=== PATIENT | male | born 1970 | race Caucasian/White ===

== ENCOUNTER 2023-03-21 14:02 | Emergency (ER) | payer MEDICAID ==
[~2023-03-21] VITALS: Ht 170.2 cm; Wt 78.5 kg
--- OUTSIDE RECORDS SUMMARY | 2023-03-21 14:06 | XMS ---
PreManage Notification: STACIA BARRAZA Security Rehab Therapy Manager Events No recent Security Events currently on file CRITERIA MET - [facility] - 2 Visits in 30 Days CARE PROVIDERS There are no care providers on record at this time. Nicola has no Care Guidelines for this patient. [place] [facility] COUNT (12 MO.) [facility] NOTE: Visits indicate total known visits. ED[facility] VISIT TRACKING (12 MO.) [facility]23 14[facility] COMPLAINT: - SHAKY, MEMORY LOSS, DIZZY, HALLUCINATIONS 03/21/2023 12:[address] [facility] TYPE: Emergency COMPLAINT: - SHAKY, STUTTERING/SLURRING WORDS INPATIENT VISIT TRACKING (12 MO.) No inpatient visits to display in this time frame [id number]
[2023-03-21] MEDS ORDERED: VISTARIL25 MG PO (15:54)
[2023-03-21 16:09] VITALS: BP 138/103
== END 2023-03-21 16:09 | disposition home or self-care (01) ==
LOC: ED 14:02
DX: F15.10 Other stimulant abuse, uncomplicated (principal); Z91.040 Latex allergy status
CPT/HCPCS: 99283